=== PATIENT | female | born 1995 | race Two or more races ===

== ENCOUNTER 2022-02-27 17:27 | Emergency (ER) | payer OTHER ==
[~2022-02-27] VITALS: Ht 182.9 cm; Wt 145.1 kg
[2022-02-27] MEDS ORDERED: NORFLEX100MG PO (22:42)
[2022-02-27] MEDS ORDERED: KETO10TA2 PO (22:42)
== END 2022-02-27 22:45 | disposition home or self-care (01) ==
LOC: ER 17:27
DX: M54.50 Low back pain, unspecified (principal)

== ENCOUNTER 2023-02-26 18:23 | Inpatient (IN) | payer OTHER ==
[~2023-02-26] VITALS: Ht 180.3 cm; Wt 119.7 kg
[~2023-02-26 18:23] MED LIST: KETO10TA2 PO; NORFLEX100MG PO
[2023-02-26] MEDS ORDERED: PRENATAL CAPLE1 EAC1 (18:27)
[2023-03-03] MEDS ORDERED: IBUPROFEN800 MG PO (12:50)
== END 2023-03-03 13:25 | disposition home or self-care (01) | DRG 786 ==
LOC: OBS/DEL 18:23 → LDR 20:44 → OB/GYN 02-28 02:46
PROVIDERS: ADMIT Student in an Organized Health Care Education/Training Program; ATTEND Student in an Organized Health Care Education/Training Program
PROC: 4A1HXCZ Monitoring of Products of Conception, Cardiac Rate, External Approach (ICD-10-PCS; 2023-02-26)
PROC: 10D00Z1 Extraction of Products of Conception, Low, Open Approach (ICD-10-PCS; principal; 2023-02-28)
DX: O45.8X2 Other premature separation of placenta, second trimester (principal); O60.12X0 Preterm labor second trimester with preterm delivery second trimester, not applicable or unspecified; O42.012 Preterm premature rupture of membranes, onset of labor within 24 hours of rupture, second trimester; Z3A.23 23 weeks gestation of pregnancy; Z37.0 Single live birth; Z20.822 Contact with and (suspected) exposure to COVID-19